=== PATIENT | female | born 1990 | race African-American/Black ===

== ENCOUNTER 2024-10-20 19:58 | Emergency (ER) | payer MEDICAID, OTHER ==
[~2024-10-20] VITALS: Ht 162.6 cm; Wt 107.2 kg
[~2024-10-20 19:58] MED LIST: PRE NATAL VIT.; PREN-88 PO
[2024-10-20 20:06] VITALS: TEMP 36.8
[2024-10-20 21:21] LABS: BASOPHILS % 0.3 % (0.0-2.0); EOSINOPHILS % 1.4 % (0.0-5.0); HEMATOCRIT. 40.7 % (36.0-48.0); HEMOGLOBIN. 13.2 g/dL (12.0-16.0); LYMPHOCYTES % 35.5 % (20.0-50.0); MEAN PLATELET VOLUME 9.5 fl (7.4-10.4); MONOCYTES % 6.9 % (2.0-8.0); NEUTROPHILS % 55.9 % (40.0-76.0); PLATELET 243 x1000/uL (130-400); RED BLOOD CELL COUNT 5.07 mill/uL (4.2-5.4); RED CELL DISTRIBUTION WIDTH 14.2 % (11.6-14.6)
[2024-10-20 21:34] LABS: CREATININE 0.8 mg/dL (0.6-1.0); TROPONIN I HIGH SENSITIVITY 5 ng/L (3.0-34)
[2024-10-20 21:35] LABS: UREA NITROGEN BLOOD 5 mg/dL (9-23)
[2024-10-20] MEDS: ACETAMINOPHEN 325MG TABLET PO ONE (22:41)
[2024-10-20 23:38] VITALS: PULSE 65; RESP 14; O2SAT 100
[2024-10-20] MEDS: ALBUTEROL (0.083%) 2.5MG/3ML NEB HHN ONE (23:38)
[2024-10-21] MEDS ORDERED: ALBU05 NEB (00:17)
[2024-10-21 00:18] VITALS: BP 162/92; PULSE 78; RESP 15; O2SAT 100
== END 2024-10-21 00:36 | disposition home or self-care (01) ==
LOC: ER 19:58
DX: R07.89 Other chest pain (principal); I10 Essential (primary) hypertension; J45.909 Unspecified asthma, uncomplicated; Z87.59 Personal history of other complications of pregnancy, childbirth and the puerperium
CPT/HCPCS: 80048; 85025; 84484; 36415; 71045; 94640; 93005; 99285; Z7610 ×3; 94070; 94664; 98960